=== PATIENT | female | born 1975 | race Two or more races ===

== ENCOUNTER 2024-11-11 08:45 | Inpatient (IN) | payer OTHER ==
[~2024-11-11] VITALS: Ht 162.6 cm; Wt 88.9 kg
[2024-11-11] MEDS ORDERED: NEURONTIN300 MG PO (09:18)
[2024-11-11] MEDS ORDERED: TROKENDI XR100 MG PO (09:18)
[2024-11-11] MEDS ORDERED: ZESTRIL20 MG PO (09:18)
[2024-11-11] MEDS ORDERED: MELOXICAM15 MG PO (09:19)
[2024-11-11] MEDS ORDERED: FOLIC ACID1 MG PO (09:19)
[2024-11-11] MEDS ORDERED: ZANAFLEX4 M1 PO (09:19)
[2024-11-11] MEDS ORDERED: VITAMIN D (09:20)
[2024-11-11] MEDS ORDERED: METOTREXATE (09:21)
[2024-11-11 09:31] VITALS: BP 115/77
[2024-11-11 09:34] VITALS: BP 124/87
[2024-11-11 09:39] LABS: BASO % 0.6 % (0.1-1.2); EOS # 0.10 (0.04-0.54); EOS % 1.6 % (0.7-7.0); LYMPH # 2.12 (1.18-3.74); LYMPH % 32.9 % (19.3-53.1); MEAN PLATELET VOLUME 11.00 fl (9.4-12.4); MONO # 0.37 (0.24-0.82); MONO % 5.7 % (4.7-12.5); NEUT # 3.80 (1.56-6.13); NEUT % 59.0 % (34.0-71.1); RED CELL DISTRIBUTION WIDTH 13.3 % (11.6-14.4)
[2024-11-11 09:41] LABS: URINE APPEARANCE Cloudy; URINE BILIRRUBIN Negative (NEGATIVE); URINE BLOOD Negative; URINE COLOR Yellow; URINE GLUCOSE Negative (NEGATIVE); URINE KETONE Trace (NEGATIVE); URINE LEUKOCYTE Trace; URINE NITRATE Negative; URINE PROTEIN Negative (NEGATIVE); URINE UROBILINOGEN 1.0 E.U./dl
[2024-11-11 09:46] LABS: URINE BACTERIA 2673.5 uL (0.0-1933); URINE EPITHELIAL CELLS 200.2 uL (0.0-38.8); URINE RBC 20.2 uL (0.0-20.8); URINE WBC 32.3 uL (0.0-23.2)
[2024-11-11 10:07] LABS: TYPE CELLS SQUAMOUS; URINE CAST 0.87 uL (0.0-1.40)
[2024-11-11 10:08] LABS: URINE MUCUS SCANT; URINE YEAST FEW /hpf
[2024-11-11 10:28] LABS: INR 0.97
[2024-11-11 10:46] LABS: ALT/SGPT 17.0 U/L (12-78); AST/SGOT 9.0 U/L (15-37); BILIRUBIN TOTAL 0.7 mg/dL (0.3-1.2); BUN CREA RATIO 18.0 (7.0-25.0); CREATININE SERUM 0.68 mg/dL (0.55-1.02); GFR 91.59; GLOBULINA 3.2 G/DL (2.4-3.5); GLUCOSE FASTING 103.0 mg/dL (65-100); OSMOLALITY SERUM 285.0 MOSM/KG (275-295); TSH 1.21 uIU/mL (0.358-3.74)
[2024-11-20] MEDS ORDERED: CEFOXITIN SODIUM 2,000 MG VIAL IV ONE ×2 (06:54→07:45)
[2024-11-20] MEDS ORDERED: POVIDONE-IODINE 118 ML BOTT TOP ONE ×2 (07:11→07:45)
[2024-11-20] MEDS ORDERED: VISTASEAL DUAL APPICATOR 1 EACH APPL TOP ONE (10:59)
[2024-11-20] MEDS ORDERED: THROMBIN,HU/FIBRINOGEN/CALCIUM 10 ML SYRINGE TOP ONE (10:59)
[2024-11-20] MEDS ORDERED: MORPHINE SULFATE 4 MG/ML CARTRIDGE IV SCH (12:37)
[2024-11-20] MEDS ORDERED: PROMETHAZINE HCL 50 MG/ML AMPUL IV SCH (12:37)
[2024-11-20] MEDS ORDERED: SUGAMMADEX SODIUM 200 MG/2 ML VIAL IV ONE (12:39)
[2024-11-20] MEDS ORDERED: RINGERS SOLUTION,LACTATED 1,000 ML IV SCH (12:45)
[2024-11-20] MEDS ORDERED: ENALAPRILAT DIHYDRATE 2.5 MG/2 ML VIAL IV PRN (13:15)
[2024-11-20] MEDS ORDERED: MORPHINE SULFATE 4 MG/ML VIAL IV ONE (13:50)
[2024-11-20] MEDS ORDERED: SIMETHICONE 125 MG CAPSULE PO SCH (17:00)
[2024-11-20 17:23] LABS: BASO % 0.1 % (0.1-1.2); EOS # 0.00 (0.04-0.54); EOS % 0.0 % (0.7-7.0); LYMPH # 1.09 (1.18-3.74); LYMPH % 5.9 % (19.3-53.1); MEAN PLATELET VOLUME 11.00 fl (9.4-12.4); MONO # 0.97 (0.24-0.82); MONO % 5.2 % (4.7-12.5); NEUT # 16.32 (1.56-6.13); NEUT % 88.3 % (34.0-71.1); RED CELL DISTRIBUTION WIDTH 13.6 % (11.6-14.4)
[2024-11-20 17:27] VITALS: BP 115/77; O2SAT 98
[2024-11-20 20:36] VITALS: BP 116/76
[2024-11-21] VITALS: BP 101/64
[2024-11-21 08:50] VITALS: BP 114/76; O2SAT 98
[2024-11-21] MEDS ORDERED: LISINOPRIL 20 MG TABLET PO SCH (09:00)
[2024-11-21] MEDS ORDERED: ACETAMINOPHEN WITH CODEINE 1 UDTAB TABLET PO PRN (09:00)
[2024-11-21] MEDS ORDERED: NAPROXEN 500 MG TABLET PO SCH (09:00)
[2024-11-21 12:45] LABS: ALT/SGPT 17.0 U/L (12-78); AST/SGOT 25.0 U/L (15-37); BILIRUBIN TOTAL 0.38 mg/dL (0.3-1.2); BUN CREA RATIO 7.0 (7.0-25.0); CREATININE SERUM 0.81 mg/dL (0.55-1.02); GFR 74.54; GLOBULINA 2.5 G/DL (2.4-3.5); GLUCOSE FASTING 130.0 mg/dL (65-100); OSMOLALITY SERUM 288.0 MOSM/KG (275-295)
[2024-11-21 16:31] VITALS: BP 94/67
[2024-11-22] VITALS: BP 99/69
[2024-11-22 08:44] VITALS: BP 100/64
[2024-11-22] MEDS ORDERED: NAPROXEN500 MG PO (16:24)
[2024-11-22] MEDS ORDERED: ACETAMINOPHEN-1 EAC2 PO (16:24)
[2024-11-22] MEDS ORDERED: COLACE100 MG PO (16:25)
== END 2024-11-22 16:46 | disposition home or self-care (01) | DRG 743 ==
LOC: O/R 11-20 06:00 → SURH 11-20 07:00 → OB/GYN 11-20 15:37
PROVIDERS: ADMIT Obstetrics & Gynecology; ATTEND Obstetrics & Gynecology
PROC: 0UT7FZZ Resection of Bilateral Fallopian Tubes, Via Natural or Artificial Opening With Percutaneous Endoscopic Assistance (ICD-10-PCS; 2024-11-20)
PROC: 0UT2FZZ Resection of Bilateral Ovaries, Via Natural or Artificial Opening With Percutaneous Endoscopic Assistance (ICD-10-PCS; 2024-11-20)
PROC: 0JQC0ZZ Repair Pelvic Region Subcutaneous Tissue and Fascia, Open Approach (ICD-10-PCS; 2024-11-20)
PROC: 0USG4ZZ Reposition Vagina, Percutaneous Endoscopic Approach (ICD-10-PCS; 2024-11-20)
PROC: 0TJB8ZZ Inspection of Bladder, Via Natural or Artificial Opening Endoscopic (ICD-10-PCS; 2024-11-20)
PROC: 0UT9FZZ Resection of Uterus, Via Natural or Artificial Opening With Percutaneous Endoscopic Assistance (ICD-10-PCS; principal; 2024-11-20 07:00)
PROC: B42CYZZ Computerized Tomography (CT Scan) of Pelvic Arteries using Other Contrast (ICD-10-PCS; 2024-11-21)
DX: N92.1 Excessive and frequent menstruation with irregular cycle (principal); N92.5 Other specified irregular menstruation; N94.5 Secondary dysmenorrhea; N81.11 Cystocele, midline
CPT/HCPCS: 72191

== ENCOUNTER 2024-12-03 13:48 | Emergency (ER) | payer OTHER ==
[~2024-12-03] VITALS: Ht 162.6 cm; Wt 89.8 kg
[~2024-12-03 13:48] MED LIST: ACETAMINOPHEN-1 EAC2 PO; COLACE100 MG PO; FOLIC ACID1 MG PO; MELOXICAM15 MG PO; METOTREXATE; NAPROXEN500 MG PO; NEURONTIN300 MG PO; TROKENDI XR100 MG PO; VITAMIN D; ZANAFLEX4 M1 PO; ZESTRIL20 MG PO
[2024-12-03 13:59] VITALS: BP 100/71; O2SAT 97
[2024-12-03] MEDS ORDERED: KETOROLAC TROMETHAMINE 30 MG VIAL IV ONE (15:45)
[2024-12-03] MEDS ORDERED: FAMOTIDINE/PF 20 MG/2 ML VIAL IV ONE (15:45)
[2024-12-03] MEDS ORDERED: 0.9 % SODIUM CHLORIDE 1,000 ML IV ONE (15:45)
[2024-12-03] MEDS ORDERED: FAMOTIDINE/PF 20 MG/2 ML VIAL ONE (15:48)
[2024-12-03] MEDS ORDERED: KETOROLAC TROMETHAMINE 30 MG VIAL ONE (15:48)
[2024-12-03 16:12] LABS: BASO % 0.9 % (0.1-1.2); EOS # 0.13 (0.04-0.54); EOS % 1.4 % (0.7-7.0); LYMPH # 2.37 (1.18-3.74); LYMPH % 26.0 % (19.3-53.1); MEAN PLATELET VOLUME 10.90 fl (9.4-12.4); MONO # 0.40 (0.24-0.82); MONO % 4.4 % (4.7-12.5); NEUT # 6.12 (1.56-6.13); NEUT % 67.0 % (34.0-71.1); RED CELL DISTRIBUTION WIDTH 13.8 % (11.6-14.4)
[2024-12-03 16:29] LABS: INR 0.94
[2024-12-03 16:46] LABS: URINE APPEARANCE Clear; URINE BILIRRUBIN Negative (NEGATIVE); URINE BLOOD Small; URINE COLOR Yellow; URINE GLUCOSE Negative (NEGATIVE); URINE KETONE Negative (NEGATIVE); URINE LEUKOCYTE Moderate; URINE NITRATE Negative; URINE PROTEIN Negative (NEGATIVE); URINE UROBILINOGEN 1.0 E.U./dl
[2024-12-03 16:51] LABS: URINE BACTERIA 1094.3 uL (0.0-1933); URINE EPITHELIAL CELLS 18.7 uL (0.0-38.8); URINE RBC 7.1 uL (0.0-20.8); URINE WBC 103.6 uL (0.0-23.2)
[2024-12-03 16:56] LABS: URINE CAST 0.14 uL (0.0-1.40)
[2024-12-03 16:57] LABS: ALT/SGPT 15.0 U/L (12-78); AST/SGOT 11.0 U/L (15-37); BILIRUBIN TOTAL 0.32 mg/dL (0.3-1.2); BUN CREA RATIO 28.0 (7.0-25.0); CREATININE SERUM 0.75 mg/dL (0.55-1.02); GFR 81.47; GLOBULINA 3.2 G/DL (2.4-3.5); GLUCOSE FASTING 107.0 mg/dL (65-100); OSMOLALITY SERUM 285.0 MOSM/KG (275-295)
[2024-12-03] MEDS ORDERED: TRAMADOL HCL 50 MG TABLET PO STA (19:43)
[2024-12-03] MEDS ORDERED: NAPR500T14 PO (21:46)
== END 2024-12-03 22:13 ==
LOC: ER 13:48
PROVIDERS: General Practice
DX: K56.41 Fecal impaction (principal); Z90.710 Acquired absence of both cervix and uterus; I10 Essential (primary) hypertension; Z88.2 Allergy status to sulfonamides; Z87.09 Personal history of other diseases of the respiratory system; Z91.013 Allergy to seafood